=== PATIENT | female | born 1960 | race Caucasian/White ===

== ENCOUNTER 2023-05-12 17:30 | Outpatient (REF) | payer MEDICAID, SELFPAY ==
[2023-05-12 22:57] LABS: TSH < 0.01 uIU/mL (0.36-3.74)
== END 2023-05-12 17:31 | disposition home or self-care (01) ==
LOC: NCHCN 17:30
PROVIDERS: Visit Provider Family Medicine
DX: E03.9 Hypothyroidism, unspecified (principal)
CPT/HCPCS: 84443

== ENCOUNTER 2023-11-18 22:42 | Outpatient (REF) | payer MEDICAID, SELFPAY ==
[2023-11-18 21:31] LABS: MCH 31.3 pg (27.0-33.0); MCHC 33.3 % (32.0-36.0); MCV 94 fL (80-95); MPV 10.6 fL (8.0-11.0); Platelet Count 225 10^3/uL (130-400); RDW 13.6 % (11.7-14.6); RDW-SD 47.4 fL; WBC 5.89 10^3/uL (4.4-10.8)
[2023-11-18 21:57] LABS: Anion Gap 5.7 mmol/L (3-11); BUN 12 mg/dL (7-18); CO2 29.3 mmol/L (21.0-32.0); CREATININE 0.8 mg/dL (0.55-1.02); Calcium 8.7 mg/dL (8.5-10.1); Chloride 105 mmol/L (98-107); Estimated GFR 82.23 (mL/min/1.73m2); Glucose 88 mg/dL (74-106); Sodium 140 mmol/L (136-145); TSH 0.02 uIU/Ml (0.36-3.74)
== END 2023-11-18 22:43 | disposition home or self-care (01) ==
LOC: NCHCN 22:42
PROVIDERS: Visit Provider Registered Nurse
DX: E03.9 Hypothyroidism, unspecified (principal); R42 Dizziness and giddiness
CPT/HCPCS: 80048; 85027; 84443

== ENCOUNTER 2023-12-20 12:56 | Outpatient (REF) | payer MEDICAID, SELFPAY ==
[2023-12-20 22:20] LABS: TSH 0.14 uIU/Ml (0.36-3.74); Vitamin B12 976 pg/mL (193-986)
[2023-12-20 22:40] LABS: FREE T4 0.76 ng/dL (0.76-1.46)
[2023-12-28 16:33] LABS: T3, Total 134 ng/dL (97-169)
== END 2023-12-20 12:57 | disposition home or self-care (01) ==
LOC: NCHCN 12:56
PROVIDERS: PCP Family Medicine; Visit Provider Family Medicine
DX: Z13.29 Encounter for screening for other suspected endocrine disorder (principal)
CPT/HCPCS: 82607; 84439; 84443; 84480

== ENCOUNTER 2024-09-10 16:41 | Outpatient (REF) | payer MEDICARE, SELFPAY ==
[2024-09-10 21:43] LABS: Calculated LDL 116 mg/dL (<100); Cholesterol 238 mg/dL (<200); HDL Cholesterol 81 mg/dL (>or=50); Triglyceride 209 mg/dL (<150)
== END 2024-09-10 16:42 | disposition home or self-care (01) ==
LOC: NCHCN 16:41
PROVIDERS: PCP Family Medicine; Visit Provider Family Medicine
DX: E78.5 Hyperlipidemia, unspecified (principal)
CPT/HCPCS: 80061